=== PATIENT | female | born 1940 | race Caucasian/White ===

== ENCOUNTER 2021-04-16 21:15 | Inpatient (IN) ==
[2021-04-16] MEDS ORDERED: SODIUM CHLORIDE 0.9% 1000ML 1,000 ML IV SCH ×2 (21:45→22:45)
--- NOTE | 2021-04-16 21:48 | Emergency Department Note ---
Impression & Plan Weakness, DEANA (acute kidney injury), Hypercalcemia ED Provider Note Provider: Anthony Pierre MD DATE OF SERVICE: 04/16/2021 CHIEF COMPLAINT: Weakness, nausea, fatigue HISTORY OF PRESENT ILLNESS: Patient is a 80-year-old female with a history of mitral valve prolapse and recent thyroid resection presenting here today complaining of weakness, nausea, and fatigue. Evidently had a partial thyroid resection not long ago and then just this past week have the remainder of her thyroid removed in [place]. Came home on Tuesday per her and her daughters report and has been quite fatigued and weak since then. Requiring assistance walking to the car today and significant nausea over last 4 days has been reported. Daughter states he been in close contact with the surgeon regarding this and went to the primary doctors office yesterday. Had some blood work drawn yesterday and were told this morning that her calcium was quite high (16.8). Kidney function also reported to be somewhat abnormal creatinine 1.7 from baseline around 1.1. She was home on calcitriol and Tums supplementation which she was told to stop today. Received some nausea medicine which he states has allowed her to eat a little bit of boost drink and small amount of food today. Patient denies any abdominal pain, chest pain, shortness of breath, neck pain, difficulty breathing or swallowing, or fevers. No falls or trauma reported. Patient does states she feels lightheaded and dizzy prickly when ambulating and walking. Normally patient states she is quite active and her daughter states she often would mow her own grass and this is quite unlike her to be this week. Reportedly her calcium is quite high and her daughter had concerns about her weakness and brought here for evaluation. Patient daughter states swelling at the incision around the throat has seemed to be improving over the last day or 2. REVIEW OF SYSTEMS: A total of 10 review of systems was obtained and negative except as stated above in the HPI. PAST MEDICAL HISTORY: As noted above MEDICATIONS: Reviewed home medication list SOCIAL HISTORY: Lives at home PHYSICAL EXAM: GENERAL: alert and oriented in no acute distress on stretcher however fatigued resting with eyes closed Head: normocephalic and atraumatic EYES: No injection, discharge or icterus. NECK: Trachea midline. Supple with at the base of the neck small incision ap pears well-healed with mild surrounding swelling without erythema or crepitus. LUNGS: Airway patent. No retractions. Breath sounds clear with good air entry bilaterally. HEART: Regular bradycardic rate and rhythm. No chest wall tenderness ABDOMEN: Soft and non-tender, without guarding or rebound. SKIN: Acyanotic, warm, dry, without rashes EXTREMITIES: Without swelling, tenderness or deformity NEUROLOGICAL: No focal deficits. No aphasia. No facial droop or slurred speech. EK bpm sinus bradycardia. No PVC or PAC. No acute ST segment elevation or depression appreciated. QTc 382. Normal axis. No priors available CONTINUOUS CARDIAC MONITORING: was ordered and showed a heart rate of 50s bpm in sinus bradycardia Patient's laboratory studies and imaging reviewed. Differential includes Infection, dehydration, metabolic abnormality, hypo/hyperglycemia, electrolyte disturbance, anemia, hypoxia, cardiac sources, intracerebral event, toxicologic, neurologic, as well as other pathologies. IMPRESSION/MEDICAL DECISION MAKING: Patient presents with generalized weakness post thyroidectomy on calcium supplementation. Outpatient blood work from the [facility] medical record reviewed showing hypercalcemia as well as some DEANA. Given some fluids here. Benign abdomen. Denies fever. No evidence of significant neck mass or swelling. Doubt infection here. Question significant fatigue from her electrolyte abnormalities postsurgically and dehydrating. Basic labs were obtained as well as EKG here. No significant interval abnormalities noted on the EKG. Given some IV fluid hydration. Patient endorses some dizziness and lightheadedness although she has not followed yet. Do not believe she need a CT of the head at this time as I doubt acute CVA or trauma however she is certainly at risk for falls given her weakened state. No significant cytosis with slight anemia noted. DEANA with a creatinine of 2.5 compared to baseline of 1.1. Calcium of 17 today. Hypomagnesemia 1.5 noted. Covid negative. Urine not impressive for infection. Hypercalcemia likely the patient's symptoms likely from increased supplementation and some dehydration component from her DEANA. Discussed with nephrology for Kianna here via phone and recommended continue fluid hydration. Again received IV fluid bolus and higher rate maintenance fluids were ordered for hydration and delusional purpose s. Titration of her calcium supplementation and improvement of her renal function need to be addressed here at the hospital. The hospitalist was consulted as the patient and daughter at bedside were in agreement for further inpatient care at this time. DIAGNOSIS: Weakness, DEANA, hypercalcemia DISPOSITION: Hospitalist will evaluate Patient was agreeable with this plan. Discussed return precautions and advised follow up. Critical Care I have personally spent 33 minutes of critical care time in the direct management of this patient. This includes bedside care, interpretation of diagnostic studies, and testing, discussion with consultants, patient, and family members, and other required patient management activities. These 33 minutes is in excess of all separately billable procedures. Past Med/Surg History Social History Smoking Status: Never smoker Preferred Language: Frisian Feels Safe at Home: Yes Allergies Allergies Allergy/AdvReac Type Severity Reaction Status Date / Time No Known Allergies Allergy Verified 12/20/02 18:10 Home Meds Home Medications Medication Instructions Recorded Confirmed atenolol 100 mg PO BID 04/16/21 04/16/21 felodipine 10 mg PO DAILY 04/16/21 04/16/21 fenofibrate 54 mg PO DAILY 04/16/21 04/16/21 levothyroxine 112 mcg PO DAILYBB 04/16/21 04/16/21 lovastatin 20 mg PO HS 04/16/21 04/16/21 ondansetron HCl 4 mg PO Q8 PRN 04/16/21 04/16/21 potassium chloride 20 meq PO DAILY 04/16/21 04/16/21 triamterene-hydrochlorothiazid 1 cap PO DAILY 04/16/21 04/16/21 losartan 100 mg PO DAILY 04/17/21 04/17/21 Results & Data (ED) Vital Signs Vital Signs - 24 hr 04/16/21 21:19 04/16/21 22:47 04/16/21 22:52 Temperature 36.4 C L Temperature Source Temporal Artery Scan Pulse Rate 61 55 L Pulse Rate from SpO2 Sensor Pulse Rhythm Regular Pulse Strength Normal Respiratory Rate 18 15 Respiratory Effort / Characteristics Non-Labored Spontaneous Respiratory Depth Normal Respiratory Pattern Regular Blood Pressure 121/67 128/78 Blood Pressure Mean 85 94 Blood Pressure Position Sitting Pulse Oximetry 98 94 94 Oxygen Delivery Method Room Air Room Air Room Air Sepsis Recent Fever Within 48 Hours No Sepsis New/Unexplained Change in Mental Status No Sepsis Action Taken by Nursing No Action Required 04/16/21 23:00 04/16/21 23:30 04/17/21 00:01 Temperature Temperature Source Pulse Rate 55 L 53 L 57 L Pulse Rate from SpO2 Sensor 55 L 53 L 58 L Pulse Rhythm Pulse Strength Respiratory Rate 18 16 18 Respiratory Effort / Characteristics Respiratory Depth Respiratory Pattern Blood Pressure 135/64 124/64 161/62 H Blood Pressure Mean 87 84 95 Blood Pressure Position Pulse Oximetry 94 94 99 Oxygen Delivery Method Room Air Room Air Sepsis Recent Fever Within 48 Hours Sepsis New/Unexplained Change in Mental Status Sepsis Action Taken by Nursing Laboratory Data Result diagrams: 04/16/21 21:50 04/16/21 21:50 Lab Results 04/16/21 04/16/21 04/16/21 Range/Units 21:50 21:50 21:50 WBC 10.56 (4.8-10.8) K/uL RBC 3.45 L (4.2-5.4) M/uL Hgb 10.9 L (12.0-16.0) g/dL Hct 32.4 L (37-47) % MCV 93.9 (80-100) fL MCH 31.6 (25-34) pg MCHC 33.6 (32-36) g/dL RDW Std Deviation 45.5 (36.4-46.3) fL RDW Coeff of Johanna 13.2 (11.5-14.5) % Plt Count 437 H (130-400) K/uL MPV 10.1 (7.4-10.4) fL Immature Gran % (Auto) 1.2 % Neut % (Auto) 69.5 % Lymph % (Auto) 15.9 % [place] % (Auto) 12.2 % Eos % (Auto) 0.9 % Baso % (Auto) 0.3 % Neut # (Auto) 7.33 H (1.4-6.5) K/uL Lymph # (Auto) 1.68 (1.2-3.4) K/uL [place] # (Auto) 1.29 H (0.11-0.59) K/uL Eos # (Auto) 0.10 (0-0.5) K/uL Baso # (Auto) 0.03 (0-0.2) K/uL Immature Gran # (Auto) 0.13 H (0.00-0.02) K/uL Sodium 134 L (136-145) mmol/L Potassium 3.7 (3.5-5.1) mmol/L Chloride 99 (98-107) mmol/L Carbon Dioxide 28 (21-32) mmol/L Anion Gap 7.0 (3-11) BUN 40 H (7-18) mg/dl Creatinine 2.50 H (0.6-1.2) mg/dl Est Cr Clr Drug Dosing 17.8 ml/min Est GFR ( Amer) 20.6 ml/min Est GFR (Non-Af Amer) 17.8 ml/min BUN/Creatinine Ratio 16.2 (10-20) Glucose 167 H (70-99) mg/dl Calcium 17.0 H* (8.5-10.1) mg/dl Phosphorus 2.7 (2.5-4.9) mg/dl Magnesium 1.5 L (1.8-2.4) mg/dl Total Bilirubin 0.3 (0.2-1) mg/dl AST 11 L (15-37) U/L ALT 16 (12-78) U/L Alkaline Phosphatase 50 (45-117) U/L Troponin I < 0.015 (0-0.045) ng/ml Total Protein 7.1 (6.4-8.2) gm/dl Albumin 3.3 L (3.4-5.0) gm/dl Globulin 3.8 (2.5-4.0) gm/dl Albumin/Globulin Ratio 0.9 (0.9-2) Lipase 440 H (73-393) U/L TSH 3.100 (0.300-4.500) uIu/ml Urine Color Yellow Urine Appearance Cloudy A (Clear) Urine pH 7.5 (4.5-7.5) Ur Specific [place] 1.011 (1.000-1.030) Urine Protein Negative (Negative) Urine Glucose (UA) Negative (Negative) Urine Ketones Negative (Negative) Urine Blood Negative (Negative) Urine Nitrite Negative (Negative) Urine Bilirubin Negative (Negative) Urine Urobilinogen Negative (Negative) Ur Leukocyte Esterase Trace H (Negative) Urine WBC (Auto) 5-10 H (0-5) /hpf Urine RBC (Auto) 0-4 (0-4) /hpf U Hyaline Cast (Auto) 1-5 (0-5) /lpf U Epithel Cells (Auto) 10-20 H (0-5) /lpf Urine Bacteria (Auto) Negative (Negative) COVID-19 Eval Order SARS-CoV-2 (PCR) (Negative) 04/16/21 04/16/21 Range/Units 21:50 21:50 WBC (4.8-10.8) K/uL RBC (4.2-5.4) M/uL Hgb (12.0-16.0) g/dL Hct (37-47) % MCV (80-100) fL MCH (25-34) pg MCHC (32-36) g/dL RDW Std Deviation (36.4-46.3) fL RDW Coeff of Johanna (11.5-14.5) % Plt Count (130-400) K/uL MPV (7.4-10.4) fL Immature Gran % (Auto) % Neut % (Auto) % Lymph % (Auto) % [place] % (Auto) % Eos % (Auto) % Baso % (Auto) % Neut # (Auto) (1.4-6.5) K/uL Lymph # (Auto) (1.2-3.4) K/uL [place] # (Auto) (0.11-0.59) K/uL Eos # (Auto) (0-0.5) K/uL Baso # (Auto) (0-0.2) K/uL Immature Gran # (Auto) (0.00-0.02) K/uL Sodium (136-145) mmol/L Potassium (3.5-5.1) mmol/L Chloride (98-107) mmol/L Carbon Dioxide (21-32) mmol/L Anion Gap (3-11) BUN (7-18) mg/dl Creatinine (0.6-1.2) mg/dl Est Cr Clr Drug Dosing ml/min Est GFR ( Amer) ml/min Est GFR (Non-Af Amer) ml/min BUN/Creatinine Ratio (10-20) Glucose (70-99) mg/dl Calcium (8.5-10.1) mg/dl Phosphorus (2.5-4.9) mg/dl Magnesium (1.8-2.4) mg/dl Total Bilirubin (0.2-1) mg/dl AST (15-37) U/L ALT (12-78) U/L Alkaline Phosphatase (45-117) U/L Troponin I (0-0.045) ng/ml Total Protein (6.4-8.2) gm/dl Albumin (3.4-5.0) gm/dl Globulin (2.5-4.0) gm/dl Albumin/Globulin Ratio (0.9-2) Lipase (73-393) U/L TSH (0.300-4.500) uIu/ml Urine Color Urine Appearance (Clear) Urine pH (4.5-7.5) Ur Specific [place] (1.000-1.030) Urine Protein (Negative) Urine Glucose (UA) (Negative) Urine Ketones (Negative) Urine Blood (Negative) Urine Nitrite (Negative) Urine Bilirubin (Negative) Urine Urobilinogen (Negative) Ur Leukocyte Esterase (Negative) Urine WBC (Auto) (0-5) /hpf Urine RBC (Auto) (0-4) /hpf U Hyaline Cast (Auto) (0-5) /lpf U Epithel Cells (Auto) (0-5) /lpf Urine Bacteria (Auto) (Negative) COVID-19 Eval Order Covid19 at [facility] SARS-CoV-2 (PCR) NEGATIVE (Negative) Administered Medications Sodium Chloride (Nss 1000ml) 1,000 mls @ 150 mls/hr IV .Q6H40M MATEO Stop: 05/16/21 22:44 Last Admin: 04/16/21 22:50 Dose: 150 mls/hr Documented by: [id number] Discontinued Medications Sodium Chloride (Nss 1000ml) 1,000 mls @ 999 mls/hr IV .Q1H1M MATEO Stop: 04/16/21 22:45 Last Infusion: 04/16/21 22:55 Dose: 0 mls/hr Documented by: [id number] Admin: 04/16/21 21:54 Dose: 999 mls/hr Documented by: [id number] Discharge Plan Visit Data Chief Complaint: Illness Stated Complaint: HIGH CALCIUM, WEAKNESS, REFERRED BY ED Provider: Anthony Pierre Discharge Problem: Weakness, DEANA (acute kidney injury), Hypercalcemia Patient Disposition: Admitted As Inpatient Discharge Instructions Interventions: ED Discharge Assessment Last Done: 04/17/21 01:23
[2021-04-16 22:00] LABS: Basophils # (auto) 0.03 K/uL (0-0.2); Basophils % (auto) 0.3 %; Eosinophils % (auto) 0.9 %; Hematocrit (blood only) 32.4 % (37-47); Hemoglobin 10.9 g/dL (12.0-16.0); Immature Granulocytes # (auto) 0.13 K/uL (0.00-0.02); Immature Granulocytes % (auto) 1.2 %; Lymphocytes # (auto) 1.68 K/uL (1.2-3.4); Lymphocytes % (auto) 15.9 %; Mean Corpuscular Hemoglobin 31.6 pg (25-34); Mean Corpuscular Hgb Conc 33.6 g/dL (32-36); Mean Corpuscular Volume 93.9 fL (80-100); Mean Platelet Volume 10.1 fL (7.4-10.4); Monocytes # (auto) 1.29 K/uL (0.11-0.59); Monocytes % (auto) 12.2 %; Neutrophils # (auto) 7.33 K/uL (1.4-6.5); Neutrophils % (auto) 69.5 %; Platelet Count 437 K/uL (130-400); RDW Coefficient of Variation 13.2 % (11.5-14.5); RDW Standard Deviation 45.5 fL (36.4-46.3); Red Blood Count 3.45 M/uL (4.2-5.4); White Blood Count 10.56 K/uL (4.8-10.8)
[2021-04-16 22:14] LABS: Appearance Urine Cloudy (Clear); Bacteria Urine Automated Negative (Negative); Bilirubin Urine Negative (Negative); Blood Urine Negative (Negative); Color Urine Yellow; Glucose Urine UA Negative (Negative); Ketones Urine Negative (Negative); Leukocyte Esterase Urine Trace (Negative); Nitrite Urine Negative (Negative); Protein Urine Negative (Negative); RBC Urine Automated 0-4 /hpf (0-4); Specific Gravity Urine 1.011 (1.000-1.030); Urobilinogen Urine Negative (Negative); pH Urine 7.5 (4.5-7.5)
[2021-04-16 22:16] LABS: Alanine Aminotransferase 16 U/L (12-78); Albumin Level 3.3 gm/dl (3.4-5.0); Aspartate Aminotransferase 11 U/L (15-37); BUN Creatinine Ratio 16.2 (10-20); Blood Urea Nitrogen 40 mg/dl (7-18); Carbon Dioxide 28 mmol/L (21-32); Chloride 99 mmol/L (98-107); Creatinine Clr Calc Pharmacy 17.8 ml/min; Est GFR (African American) 20.6 ml/min; Est GFR (Non-African American) 17.8 ml/min; Glucose 167 mg/dl (70-99); Lipase 440 U/L (73-393); Magnesium 1.5 mg/dl (1.8-2.4); Potassium 3.7 mmol/L (3.5-5.1); Sodium 134 mmol/L (136-145)
[2021-04-16 22:24] LABS: Albumin Globulin Ratio 0.9 (0.9-2); Alkaline Phosphatase 50 U/L (45-117); Bilirubin,Total 0.3 mg/dl (0.2-1); Globulin 3.8 gm/dl (2.5-4.0); Phosphorus 2.7 mg/dl (2.5-4.9); Total Protein 7.1 gm/dl (6.4-8.2); Troponin I < 0.015 ng/ml (0-0.045)
[2021-04-17] MEDS ORDERED: NITROGLYCERIN SL 0.4 MG/TAB TAB SL PRN (02:24)
[2021-04-17] MEDS ORDERED: ACETAMINOPHEN 325 MG TAB PO PRN (02:24)
[2021-04-17] MEDS ORDERED: hydrALAZINE HCL 20 MG/ML VIAL IV PRN (02:24)
[2021-04-17] MEDS ORDERED: METOPROLOL TARTRATE 1 MG/ML VIAL IV STA (02:35)
[2021-04-17] MEDS: SODIUM CHLORIDE 0.9% 1000ML 1,000 ML IV SCH ×3 (02:45→11:25)
[2021-04-17] MEDS ORDERED: FAMOTIDINE 20 MG in SYRINGE 3 ML IV STA (02:49)
[2021-04-17] MEDS ORDERED: FAMOTIDINE 20MG/5ML IV PUSH IV STA (02:50)
--- NOTE | 2021-04-17 02:53 | History and Physical Report ---
DATE OF ADMISSION: 04/17/2021 CHIEF COMPLAINT: Not feeling well and found to have hypercalcemia. HISTORY OF PRESENT ILLNESS: A 80-year-old female with past medical history significant for hyperlipidemia, cyst of right ovary, mild mitral regurgitation, essential hypertension, external hemorrhoids, chronic kidney disease stage IIIB, history of colon cancer, history of partial thyroidectomy on 03/20/2021 and again had to do total thyroidectomy on 04/09/2021. Comes because of not feeling well and found to have hypercalcemia. The patient states since thyroidectomy she was not feeling well, fatigued, weakness, somewhat wobbly with walking, poor appetite. Outpatient labs showed calcium of around 17 and she was advised to come to the hospital. In the ER, her calcium was 17. ER talked to nephrology and recommended aggressive fluids and she was taking Tums and also calcitriol at her home which was stopped. Currently resting comfortably and hemodynamically stable. Denies any headache, no blurred visions, no earache, no runny nose, no sore throat, no cough. Somewhat nauseous. No chest pain, no shortness of breath, no pain at surgical site. No abdominal pain. Normal bowel and bladder movements. ALLERGIES: No known drug allergies. PAST MEDICAL HISTORY: As mentioned above. PAST SURGICAL HISTORY: Colonoscopy, cystoscopy, hemorrhoidectomy, thyroidectomy, cataracts, sigmoidoscopy, vaginal hysterectomy. MEDICATIONS: The patient is on atenolol 100 mg p.o. b.i.d., felodipine 10 mg p.o. daily, fenofibrate 54 mg p.o. daily, levothyroxine 112 mcg p.o. daily, losartan 100 mg p.o. daily, lovastatin 20 mg p.o. at bedtime, Zofran 4 mg p.o. q. 8 hours p.r.n., potassium chloride 20 mEq p.o. daily, triamterene/hydrochlorothiazide 37.5/25 mg p.o. daily. FAMILY HISTORY: Significant for diabetes, heart disorder, and hypercholesterolemia. SOCIAL HISTORY: . No smoking. Alcohol rarely. No drug use. REVIEW OF SYSTEMS: As per HPI. Rest of the review of systems negative. PHYSICAL EXAMINATION: GENERAL: The patient is of moderate build, not in acute distress. VITAL SIGNS: Temperature 36.4, pulse 54, respiratory rate 18, blood pressure 161/62, oxygen 99% on room air. HEENT: Pupils equal, round, and reactive to light. Oral mucosa moist. NECK: No JVD. No neck masses. Surgical thyroidectomy site no drainage or erythema seen. CARDIOVASCULAR: S1, S2 heard, regular rate and rhythm, no murmur, no gallop. RESPIRATORY SYSTEM: Normal AP diameter. No accessory muscle use. No wheezing, no crackles. ABDOMEN: Soft, bowel sounds present, nontender. No distention. CENTRAL NERVOUS SYSTEM: Cranial nerves II-XII grossly intact. Nonfocal. EXTREMITIES: No edema, no erythema. LABORATORY DATA: WBC 10.5, hemoglobin 10.9, hematocrit 32.4, platelets 437. Sodium 134, potassium 3.7, chloride 99, bicarbonate 28, BUN 40, creatinine 2.5, serum glucose 167, calcium 17, phosphorus 2.7, magnesium 1.5, total bilirubin 0.3, AST 11, ALT 16, alkaline phosphatase 50. Troponin I less than 0.015. Lipase 440. TSH 3.1. Urinalysis, trace leukocyte esterase, bacteria negative. SARS-CoV-2 PCR negative. IMAGING DATA: Chest x-ray, no acute findings seen. EKG: Sinus bradycardia with a rate of 58. No previous ECGs available. ASSESSMENT AND PLAN: This is a 80-year-old female who presents not feeling well and found to have hypercalcemia. 1. Hypercalcemia: Recently had a thyroidectomy.Mental status ok. Was on tums and calcitriol, which was stopped. Getting fluids at 150 mL per hour. Repeat calcium levels in the a.m. Nephrology consulted and notified by the ER. 2. Thyroid nodule, status post thyroidectomy: Follow the pathology reports. 3. Hypothyroidism: Continue Synthroid. 4. Hypertension: Continue losartan, felodipine, amlodipine, and Maxzide. Will follow the blood pressure. 5. History of hyperlipidemia: Continue lovastatin. 6. Acute kidney injury on chronic kidney disease stage III: Baseline creatinine around 1.1, presents with a creatinine of 2.5. Getting fluids. Avoid nephrotoxic agents. Follow the labs in the a.m. We will hold the losartan and Maxzide for now until creatinine improves. IV hydralazine p.r.n. 7. Deep venous thrombosis prophylaxis: Sequential compression devices. DISPOSITION: Closely monitor in the [facility]. Expect to discharge home and follow with family doctor. Level 1 full code. Addendum. Morning calcium 14.5. Blood pressure running on low side, having bradycardia. d/w nephrology and starting on calcitonin 280 units sub q tid for three doses. follow repeat labs. Also holding all home BP meds and close monitor BP. MTDD
[2021-04-17] MEDS: MAGNESIUM SULFATE / D5W 1 GM/100 ML BAG IV SCH ×2 (03:01→04:53)
[2021-04-17 05:38] LABS: Basophils # (auto) 0.01 K/uL (0-0.2); Basophils % (auto) 0.1 %; Eosinophils # (auto) 0.14 K/uL (0-0.5); Eosinophils % (auto) 1.8 %; Hematocrit (blood only) 25.9 % (37-47); Hemoglobin 8.5 g/dL (12.0-16.0); Immature Granulocytes # (auto) 0.07 K/uL (0.00-0.02); Immature Granulocytes % (auto) 0.9 %; Lymphocytes # (auto) 2.46 K/uL (1.2-3.4); Lymphocytes % (auto) 30.9 %; Mean Corpuscular Hemoglobin 30.9 pg (25-34); Mean Corpuscular Hgb Conc 32.8 g/dL (32-36); Mean Corpuscular Volume 94.2 fL (80-100); Mean Platelet Volume 9.9 fL (7.4-10.4); Monocytes # (auto) 0.88 K/uL (0.11-0.59); Neutrophils # (auto) 4.41 K/uL (1.4-6.5); Neutrophils % (auto) 55.3 %; Platelet Count 337 K/uL (130-400); RDW Coefficient of Variation 13.2 % (11.5-14.5); RDW Standard Deviation 45.5 fL (36.4-46.3); Red Blood Count 2.75 M/uL (4.2-5.4); White Blood Count 7.97 K/uL (4.8-10.8)
[2021-04-17] MEDS: LEVOTHYROXINE SODIUM 112 MCG TABLET PO SCH (05:55)
[2021-04-17] MEDS ORDERED: SODIUM CHLORIDE 0.9% 500 ML IV SCH (06:15)
[2021-04-17 06:20] LABS: BUN Creatinine Ratio 15.9 (10-20); Calcium 14.9 mg/dl (8.5-10.1); Est GFR (African American) 25.2 ml/min; Est GFR (Non-African American) 21.7 ml/min; Magnesium 2.1 mg/dl (1.8-2.4); Potassium 3.5 mmol/L (3.5-5.1)
[2021-04-17] MEDS ORDERED: CALCITONIN SALMON 400 UNITS/2 ML SQ SCH (06:40)
--- NOTE | 2021-04-17 06:51 | XRay Report ---
XR chest 1V portable HISTORY: 80 years-old Female weakness acute weakness COMPARISON: None TECHNIQUE: Portable AP view of the chest FINDINGS: Cardiac mediastinal and hilar silhouettes are within normal limits. There is no pneumothorax, pleural effusion, airspace consolidation or overt pulmonary edema. Mild right hemidiaphragmatic elevation. B ones of the chest appear grossly intact. Degenerative changes of the shoulders and spine. Mild mid th oracic dextroscoliosis. IMPRESSION: No acute process. ACT 112: Negative or not required by law. The above report was generated using voice recognition software. It may contain grammatical, syntax o r spelling errors. Electronically signed by: Srinath Gomez M.D. 04/17/2021 6:50 AM
[2021-04-17] MEDS: CALCITONIN SALMON SQ SCH ×3 (07:45→22:57)
[2021-04-17] MEDS ORDERED: FELODIPINE 5 MG TABCR PO SCH (09:00)
[2021-04-17] MEDS ORDERED: ATENOLOL 50 MG TABLET PO SCH (09:00)
[2021-04-17] MEDS: ONDANSETRON INJ 2 MG/ML 2 ML VIAL IV PRN ×2 (10:26→17:05)
[2021-04-17 11:03] LABS: BUN Creatinine Ratio 17.5 (10-20); Calcium 14.3 mg/dl (8.5-10.1); Creatinine Clr Calc Pharmacy 22.4 ml/min; Est GFR (African American) 27.2 ml/min; Est GFR (Non-African American) 23.5 ml/min; Potassium 3.5 mmol/L (3.5-5.1)
[2021-04-17] MEDS: FENOFIBRATE NANOCRYSTALLIZED 48 MG TABLET PO SCH (13:01)
--- NOTE | 2021-04-17 16:05 | Communication Note ---
Date of Service: April 17, 2021 80-year-old female with the recent surgery for thyroid nodule finished on third of this month and has been on very high dose of vitamin D and calcitriol for the last 4 or 5 days was admitted with weakness and tiredness and noted to have a calcium of more than 17 and creatinine elevated as well. Has been getting intravenous fluid administration and calcitonin and the calcium level has been improving. Appreciate new nephrology input and recommendation. We will do the full progress note tomorrow. Dr Maury Azar
[2021-04-17] MEDS: NSS + 20MEQ KCL 20 MEQ/1,000 ML BAG IV SCH ×2 (17:35→22:58)
[2021-04-17] MEDS: LOVASTATIN 20 MG TAB PO SCH (22:59)
[2021-04-18] MEDS: NSS + 20MEQ KCL 20 MEQ/1,000 ML BAG IV SCH ×3 (04:30→20:43)
[2021-04-18] MEDS: LEVOTHYROXINE SODIUM 112 MCG TABLET PO SCH (06:40)
[2021-04-18 07:03] LABS: Basophils # (auto) 0.02 K/uL (0-0.2); Basophils % (auto) 0.3 %; Eosinophils # (auto) 0.03 K/uL (0-0.5); Eosinophils % (auto) 0.4 %; Hematocrit (blood only) 24.9 % (37-47); Hemoglobin 8.4 g/dL (12.0-16.0); Immature Granulocytes # (auto) 0.08 K/uL (0.00-0.02); Lymphocytes # (auto) 1.52 K/uL (1.2-3.4); Lymphocytes % (auto) 19.6 %; Mean Corpuscular Hemoglobin 31.1 pg (25-34); Mean Corpuscular Hgb Conc 33.7 g/dL (32-36); Mean Corpuscular Volume 92.2 fL (80-100); Mean Platelet Volume 9.7 fL (7.4-10.4); Monocytes # (auto) 0.74 K/uL (0.11-0.59); Monocytes % (auto) 9.6 %; Neutrophils # (auto) 5.35 K/uL (1.4-6.5); Neutrophils % (auto) 69.1 %; Platelet Count 314 K/uL (130-400); RDW Coefficient of Variation 13.2 % (11.5-14.5); White Blood Count 7.74 K/uL (4.8-10.8)
[2021-04-18] MEDS: FENOFIBRATE NANOCRYSTALLIZED 48 MG TABLET PO SCH (07:19)
[2021-04-18 07:42] LABS: BUN Creatinine Ratio 14.8 (10-20); Calcium 10.7 mg/dl (8.5-10.1); Creatinine Clr Calc Pharmacy 25.7 ml/min; Est GFR (African American) 32.2 ml/min; Est GFR (Non-African American) 27.8 ml/min; Magnesium 1.1 mg/dl (1.8-2.4); Phosphorus 1.8 mg/dl (2.5-4.9); Potassium 3.9 mmol/L (3.5-5.1)
--- NOTE | 2021-04-18 07:48 | Electrocardiogram Report ---
Test Reason : Blood Pressure : / mmHG Vent. Rate : 058 BPM Atrial Rate : 058 BPM P-R Int : 190 ms QRS Dur : 102 ms QT Int : 390 ms P-R-T Axes : 029 025 043 degrees QTc Int : 382 ms Sinus bradycardia Minor ST elevation inferolateral leads No previous ECGs available Confirmed by Idris Townsend ([id number]) on 04/18/2021 7:48:01 AM Referred By: Davina Thomas Confirmed By:Idris Townsend
[2021-04-18] MEDS: MAGNESIUM SULFATE / D5W 1 GM/100 ML BAG IV SCH ×2 (09:11→10:50)
[2021-04-18] MEDS ORDERED: POTASSIUM PHOS 3 MMOL/1 ML INFUSION IV STA (13:51)
[2021-04-18] MEDS ORDERED: POTASSIUM PHOSPHATE 30 MMOL in SODIUM CHLORIDE 0.9% 500 ML IV ONE (14:00)
--- NOTE | 2021-04-18 14:11 | Nephrology Progress Note ---
Date of Service April 18, 2021 Assessment & Plan Admission and Anticipated Discharge Date Admission Date: April 17, 2021 Subjective Feels better. No new issues. CA dropping really fast. PHYSICAL EXAMINATION: GENERAL: The patient is of moderate build, not in acute distress. HEENT: Pupils equal, round, and reactive to light. Oral mucosa moist. NECK: No JVD. No neck masses. Surgical thyroidectomy site no drainage or erythema seen. CARDIOVASCULAR: S1, S2 heard, regular rate and rhythm, no murmur, no gallop. RESPIRATORY SYSTEM: Normal AP diameter. No accessory muscle use. No wheezing, no crackles. ABDOMEN: Soft, bowel sounds present, nontender. No distention. CENTRAL NERVOUS SYSTEM: Cranial nerves II-XII grossly intact. Nonfocal. EXTREMITIES: No edema, no erythema. LABORATORY DATA: Ca down to 10+ now. Low mag and low Phos ASSESSMENT AND PLAN: This is a 80-year-old female who presents not feeling well and found to have severe hypercalcemia. 1. Hypercalcemia: Recently had a thyroidectomy. Post Surgery---Was on very high dose combo of Tums and calcitriol, Citracal and Vit D. Ca down really fast. Lower iv fluids to 75/hr. Repeat calcium levels in the a.m. Can stop Calcitonin tomorrow. No need of Zometa. Do not restart any of the Calcium meds. Correct low Mag and low Phos. Also DEANA resolved. Will need nephrology follow up within 1-2 week after discharge. Results & Data ([facility]) Vital Signs (Past 12 Hours) Vital Signs Temp Pulse Pulse Resp BP BP Pulse Ox 04/18/21 11:46 37.0 C 65 18 166/68 H 96 04/18/21 08:00 59 L 04/18/21 07:28 36.7 C 66 18 165/70 H 94 04/18/21 03:19 37 C 64 18 161/71 H 95
[2021-04-18] MEDS ORDERED: bisacodyL 5 MG TABEC PO ONE (14:34)
[2021-04-18] MEDS ORDERED: MEGESTROL ACETATE 800 MG/20 ML UDP PO SCH (14:45)
--- NOTE | 2021-04-18 14:49 | Consultation Report ---
DATE OF CONSULTATION: 04/17/2021 NEPHROLOGY CONSULTATION NOTE REASON FOR CONSULT: Critically high serum calcium and acute renal failure. HISTORY OF PRESENT ILLNESS: The patient is a 80-year-old female who was sent over to the hospital because of outpatient labs, which showed critically high serum calcium of 17 with acute renal failure. She was also feeling sick with nausea, extreme fatigue, headache. It is worth noting the patient just had a thyroid nodule surgery at [facility] and was discharged on 04/10/2021, which is just 5 days prior to hospitalization. At the time of discharge, her calcium was normal at 9.1 and kidney function was near normal with a creatinine of 1.1. She was discharged with an extremely high dose of calcitriol, vitamin D as well as Tums. According to the discharge summary, she was prescribed calcitriol 0.5 mcg 2 times a day, calcium carbonate tablet 8 tablets per day on top of Centrum Silver, Citracal Plus she was already taking. She was also on hydrochlorothiazide as well as vitamin D. Her PTH in the past has been checked and was suppressed. It is also worth noting that she does have history of mild hypercalcemia even 1 year ago. At this time, patient is getting IV fluid and with that, serum calcium has already gone down from 17 range to 14 range. She is getting normal saline at 150 mL per hour. She is making urine, but she does not have a Fuentes catheter and it is hard to know exact amount. Creatinine is also already trending down from 2.12, it is down to 1.99. PTH is very suppressed. PAST MEDICAL AND SURGICAL HISTORY: Hyperlipidemia, ovarian cyst, mild mitral regurgitation, hypertension, external hemorrhoids, chronic kidney disease stage IIIA, baseline creatinine around 1.1-1.3, history of colon cancer, history of partial thyroidectomy done on 03/20/2021, which then had to be converted to total thyroidectomy, which was done on 04/09/2021. Colonoscopy, cystoscopy, hemorrhoidectomy, thyroidectomy, cataract, sigmoidoscopy, vaginal hysterectomy. ALLERGIES: None. MEDICATIONS: Prior to hospitalization were reviewed from both [facility] medicine reconciliation as well as her [facility] Medical record. FAMILY HISTORY: Significant for diabetes, heart disease and hyperlipidemia. SOCIAL HISTORY: She is . No smoking, no alcohol, no drugs. REVIEW OF SYSTEMS: Very hard to obtain as the patient seems very weak and was barely able to speak a full sentence. She says she just feels very weak and sick. PHYSICAL EXAMINATION: GENERAL: A middle-aged white female who appears to be very weak and sick at this time. VITAL SIGNS: Blood pressure is 108/43, pulse rate 48, temperature 36.4 degrees Celsius, 94% on room air. HEENT: Mucous membranes moist. NECK: Supple. No jugular venous distention. CHEST: Bilaterally clear to auscultation. CARDIOVASCULAR: S1, S2 regular. ABDOMEN: Soft, nontender. EXTREMITIES: Show no edema. NEUROLOGIC: She is awake, alert, oriented, but was not very quick to answer. Normal, but slow speech. SKIN: No rashes noted. LABORATORY TESTS: Reviewed. Calcium was 17.0 on admission, it is trending down and is down to 14.3 at this point. Creatinine is down to 1.99 from a peak of 2.50 yesterday. Otherwise, electrolytes are reasonable. PTH is suppressed at 6.3. Hemoglobin 8.5. ASSESSMENT AND PLAN: A 80-year-old female who is admitted with critical hypercalcemia, acute renal failure and associated symptoms. 1. Acute renal failure: This is prerenal in type associated with critically high serum calcium. Such high level of calcium is always associated with acute renal failure. Fortunately, she is making urine and her creatinine is trending down, so I expect it to continue to get better in the coming days. We do have to keep an eye on the urine output given that we are aggressively hydrating the patient with normal saline at 150 mL per hour. The goal is to have very high level of urine output for the calcium excretion. 2. Hypercalcemia, critically high serum calcium: However, we do know for a fact that as of 04/10, which is just 5 days prior to hospitalization, she had a normal serum calcium of 9.1. From that level, it has gone up to 17 in a span of 5 days' secondary to super-aggressive calcium and vitamin D supplement. Even though this may be a routine after thyroid surgery, in this patient, this was way too excessive and as a result, we have this critically high serum calcium. We will stop all calcium supplementation as well as calcitriol and vitamin D as well as hydrochlorothiazide. Continue aggressive hydration with close monitoring of urine output. Continue calcitonin for a total of 4 doses. We will continue to monitor serum calcium at least 3 times a day. I expect the calcium as well as kidney function to be better in the coming days. I do not believe at this point, we have to do a detailed workup for hypercalcemia as the rate of rise was very fast within a span of few days. Such rapid rise cannot be really associated with malignancy.
--- NOTE | 2021-04-18 15:05 | Electrocardiogram Report ---
Test Reason : Blood Pressure : / mmHG Vent. Rate : 065 BPM Atrial Rate : 065 BPM P-R Int : 168 ms QRS Dur : 080 ms QT Int : 408 ms P-R-T Axes : 059 039 058 degrees QTc Int : 424 ms Normal sinus rhythm Normal ECG When compared with ECG of 16-APR-2021 21:51, No significant change was found Confirmed by Beto Long ([id number]) on 04/18/2021 3:05:14 PM Referred By: Davina Thomas Confirmed By:Beto Long
[2021-04-18] MEDS: ONDANSETRON INJ 2 MG/ML 2 ML VIAL IV PRN (15:29)
--- NOTE | 2021-04-18 16:08 | Hospitalist Progress Note ---
Date of Service April 18, 2021 Assessment & Plan (1) Hypercalcemia: She is a status post thyroid nodule surgery at [facility] on fourth of this month She was given extremely high dose of calcitriol and vitamin D as well as Tums following the surgery to prevent possible hungry bone syndrome She has been complaining of progressive weakness since the surgery and has not been eating and/or drinking enough She was seen in the clinic and noted to have a calcium of more than 17 and was sent into the hospital Has been receiving intravenous fluids since admission and the calcium level has decreased to almost normal at 10.7 on 04/18/2021 Remains weak and lethargic Significant anorexia for the last 7 to 10 days Has not been drinking and/or eating enough at home Very dehydrated with increasing creatinine on admission Creatinine is better but remains anorexic We will try Megace Dietary consult (2) DEANA (acute kidney injury): DEANA secondary to dehydration with creatinine of 2.50 on admission Has been getting intravenous fluid and increasing oral intake We will monitor PRPcreatinine is 1.73 on 04/18/2021 (3) Weakness: Secondary to hyperkalemia and DEANA (4) Hypothyroidism: Status post surgery for thyroid nodule Will need to have replacement with Synthroid (5) Hypertension: Blood pressure seems to be reasonably stable DVT prophylaxis We will start subcu heparin Admission and Anticipated Discharge Date Admission Date: April 17, 2021 Subjective 04/18/2021 The patient was seen and examined in medical telemetry unit She remains weak and lethargic but feels a little better She has not been drinking or eating almost anything for the last 7 to 10 days Denies any acute symptoms except weakness Review of Systems Review of Systems: All systems reviewed and are unremarkable except as noted below Physical Exam Physical Exam: Lying in bed comfortably but very anxious and weak Constitutional: well developed, well nourished and + ill appearing Eyes: PERRL, conjunctivae normal, anicteric sclerae ENMT: external ear and nose normal, oropharynx normal Neck: trachea midline, no thyromegaly Respiratory: no respiratory distress Auscultation: lungs clear to auscultation bilaterally Cardiovascular: Rate/Rhythm: regular rate and regular rhythm Heart Sounds: no murmur Extremities: no edema Gastrointestinal (Abdomen): Inspection/Auscultation: normal bowel sounds; abdomen not distended Percussion/Palpation: abdomen soft; abdomen nontender Musculoskeletal: No acute arthritis in any joint Neurologic: Alert, awake and oriented x3. Generally very weak and lethargic. Moving all limbs equally Lymphatic: no cervical or axillary lymphadenopathy Results & Data Results & Data ([facility]) Vital Signs (Past 12 Hours) Vital Signs Temp Pulse Pulse Resp BP BP Pulse Ox 04/18/21 15:12 36.6 C 59 L 20 145/68 H 98 04/18/21 11:46 37.0 C 65 18 166/68 H 96 04/18/21 08:00 59 L 04/18/21 07:28 36.7 C 66 18 165/70 H 94 Laboratory Results Short CBC 04/18/21 Range/Units 06:50 WBC 7.74 (4.8-10.8) K/uL Hgb 8.4 L (12.0-16.0) g/dL Hct 24.9 L (37-47) % Plt Count 314 (130-400) K/uL BMP 04/18/21 06:50 Sodium 144 Potassium 3.9 Chloride 115 H Carbon Dioxide 22 BUN 26 H Creatinine 1.73 H Glucose 91 Calcium 10.7 H D Medications Administered Current Inpatient Medications Acetaminophen (Acetaminophen 325 Mg Tab) 650 mg PO Q4H PRN PRN Reason: Pain or Fever Stop: 05/17/21 02:23 Atenolol (Atenolol 50 Mg Tablet) 100 mg PO BID [facility] Stop: 05/17/21 08:59 Felodipine (Felodipine 5 Mg Tabcr) 10 mg PO DAILY [facility] Stop: 05/17/21 08:59 Fenofibrate (Fenofibrate Nanocrystallized 48 Mg Tablet) 48 mg PO DAILY [facility]; Protocol Stop: 05/17/21 08:59 Last Admin: 04/18/21 07:19 Dose: 48 mg Documented by: Hydralazine HCl (Hydralazine Hcl 20 Mg/Ml Vial) 7.5 mg IV Q6H PRN PRN Reason: Hypertension Stop: 05/17/21 02:23 Potassium Chloride/Sodium Chloride (Normal Saline W/20 Meq Kcl) 20 meq in 1,000 mls @ 75 mls/hr IV .[id number] [facility] Stop: 05/17/21 16:59 Last Infusion: 04/18/21 14:23 Dose: 75 mls/hr Documented by: Potassium Phosphate 30 mmol/ (Sodium Chloride) 510 mls @ 102 mls/hr IV ONE ONE Stop: 04/18/21 18:59 Last Admin: 04/18/21 14:08 Dose: 102 mls/hr Documented by: Levothyroxine Sodium (Levothyroxine Sodium 112 Mcg Tablet) 112 mcg PO DAILYBB [facility] Stop: 05/17/21 06:29 Last Admin: 04/18/21 06:40 Dose: 112 mcg Documented by: Lovastatin (Lovastatin 20 Mg Tab) 20 mg PO HS [facility] Stop: 05/17/21 20:59 Last Admin: 04/17/21 22:59 Dose: 20 mg Documented by: Megestrol Acetate (Megestrol Acetate Susp 400 Mg/10 Ml Udc) 800 mg PO QAM [facility] Stop: 05/19/21 08:59 Nitroglycerin (Nitroglycerin Sl 0.4 Mg/Tab Tab) 0.4 mg SL UD PRN PRN Reason: Chest Pain Stop: 05/17/21 02:23 Ondansetron HCl (Ondansetron Inj 2 Mg/Ml 2 Ml Vial) 4 mg IV Q6H PRN PRN Reason: Nausea Stop: 05/17/21 02:23 Last Admin: 04/18/21 15:29 Dose: 4 mg Documented by:
[2021-04-18] MEDS: LOVASTATIN 20 MG TAB PO SCH (20:43)
[2021-04-18] MEDS ORDERED: FAMOTIDINE 20 MG in SYRINGE 3 ML IV PRN (22:29)
[2021-04-19] MEDS: LEVOTHYROXINE SODIUM 112 MCG TABLET PO SCH (06:08)
[2021-04-19 06:19] LABS: BUN Creatinine Ratio 15.5 (10-20); Calcium 9.3 mg/dl (8.5-10.1); Creatinine Clr Calc Pharmacy 32.1 ml/min; Est GFR (African American) 40.6 ml/min; Magnesium 1.2 mg/dl (1.8-2.4); Phosphorus 2.1 mg/dl (2.5-4.9); Potassium 3.3 mmol/L (3.5-5.1)
[2021-04-19] MEDS ORDERED: POTASSIUM CHLORIDE CRTAB 20 MEQ TABCR PO STA (06:24)
[2021-04-19] MEDS: NSS + 20MEQ KCL 20 MEQ/1,000 ML BAG IV SCH ×2 (07:50→20:28)
[2021-04-19] MEDS: MAGNESIUM SULFATE / D5W 1 GM/100 ML BAG IV SCH ×2 (07:51→09:25)
[2021-04-19] MEDS: FENOFIBRATE NANOCRYSTALLIZED 48 MG TABLET PO SCH (07:51)
[2021-04-19] MEDS: MEGESTROL ACETATE SUSP 400 MG/10 ML UDC PO SCH (07:52)
[2021-04-19] MEDS ORDERED: POTASSIUM PHOS 3 MMOL/1 ML INFUSION IV STA (08:28)
[2021-04-19] MEDS ORDERED: POTASSIUM PHOSPHATE 30 MMOL in SODIUM CHLORIDE 0.9% 500 ML IV ONE (09:00)
[2021-04-19] MEDS ORDERED: MAGNESIUM SULFATE / D5W 1 GM/100 ML BAG IV SCH (09:00)
--- NOTE | 2021-04-19 10:11 | Electrocardiogram Report ---
Test Reason : Blood Pressure : / mmHG Vent. Rate : 064 BPM Atrial Rate : 064 BPM P-R Int : 164 ms QRS Dur : 084 ms QT Int : 420 ms P-R-T Axes : 027 038 053 degrees QTc Int : 433 ms Normal sinus rhythm Normal ECG When compared with ECG of 18-APR-2021 07:06, No significant change was found Confirmed by Jaiden Sterling [id number] on 04/19/2021 10:11:27 AM Referred By: Davina Thomas Confirmed By:Jaiden Sterling
--- NOTE | 2021-04-19 13:13 | Hospitalist Progress Note ---
Date of Service April 19, 2021 Assessment & Plan (1) Hypercalcemia: She is a status post thyroid nodule surgery at [facility] on fourth of this month She was given extremely high dose of calcitriol and vitamin D as well as Tums following the surgery to prevent possible hungry bone syndrome She has been complaining of progressive weakness since the surgery and has not been eating and/or drinking enough She was seen in the clinic and noted to have a calcium of more than 17 and was sent into the hospital Has been receiving intravenous fluids since admission and the calcium level has decreased to almost normal at 10.7 on 04/18/2021 Hypercalcemia is corrected We will continue a small amount of IV fluid for now Significant anorexia for the last 7 to 10 days Has not been drinking and/or eating enough at home Very dehydrated with increasing creatinine on admission Creatinine is better but remains anorexic We will try Megace-has not improved her anorexia yet Dietary consult-appreciate input and recommendation She plans to eat more Severe electrolyte imbalance Hypomagnesemia and hypophosphatemia with hypokalemia Likely secondary to poor oral intake Has been getting supplement and will monitor the levels (2) DEANA (acute kidney injury): DEANA secondary to dehydration with creatinine of 2.50 on admission Has been getting intravenous fluid and increasing oral intake We will monitor PRPcreatinine is 1.73 on 04/18/2021 Creatinine is improved to 1.43 (3) Weakness: Secondary to hyperkalemia and DEANA We will get PT and OT evaluation (4) Hypothyroidism: Status post surgery for thyroid nodule Will need to have replacement with Synthroid (5) Hypertension: Blood pressure seems to be reasonably stable DVT prophylaxis We will start subcu heparin Admission and Anticipated Discharge Date Admission Date: April 17, 2021 Subjective 04/18/2021 The patient was seen and examined in medical telemetry unit She remains weak and lethargic but feels a little better She has not been drinking or eating almost anything for the last 7 to 10 days Denies any acute symptoms except weakness 04/19/2021 The patient was seen and examined in medical telemetry unit She remains weak but has been feeling a little bit better compared with yesterday She will try to eat more and she was seen by the dietitian Not yet ready to be discharged Review of Systems Review of Systems: All systems reviewed and are unremarkable except as noted below Gastrointestinal: Severe anorexia Neurologic: + generalized weakness Generally weak Physical Exam Physical Exam: Lying in bed comfortably but very anxious and weak Constitutional: well developed, well nourished and + ill appearing Eyes: PERRL, conjunctivae normal, anicteric sclerae ENMT: external ear and nose normal, oropharynx normal Neck: trachea midline, no thyromegaly Respiratory: no respiratory distress Auscultation: lungs clear to auscultation bilaterally Cardiovascular: Rate/Rhythm: regular rate and regular rhythm Heart Sounds: no murmur Extremities: no edema Gastrointestinal (Abdomen): Inspection/Auscultation: normal bowel sounds; abdomen not distended Percussion/Palpation: abdomen soft; abdomen nontender Musculoskeletal: No acute arthritis in any joint Neurologic: Alert, awake and oriented x3. Generally weak but no focal neuro deficit Lymphatic: no cervical or axillary lymphadenopathy Results & Data Results & Data ([facility]) Vital Signs (Past 12 Hours) Vital Signs Temp Pulse Pulse Resp BP Pulse Ox 04/19/21 11:13 36.7 C 63 18 145/74 H 98 04/19/21 08:26 62 04/19/21 07:43 36.8 C 65 18 142/58 H 95 04/19/21 04:08 37 C 63 18 134/65 95 Laboratory Results [facility] 04/19/21 05:09 Sodium 142 Potassium 3.3 L D Chloride 115 H Carbon Dioxide 20 L BUN 22 H Creatinine 1.43 H D Glucose 95 Calcium 9.3 Medications Administered Current Inpatient Medications Acetaminophen (Acetaminophen 325 Mg Tab) 650 mg PO Q4H PRN PRN Reason: Pain or Fever Stop: 05/17/21 02:23 Atenolol (Atenolol 50 Mg Tablet) 100 mg PO BID [facility] Stop: 05/17/21 08:59 Felodipine (Felodipine 5 Mg Tabcr) 10 mg PO DAILY [facility] Stop: 05/17/21 08:59 Fenofibrate (Fenofibrate Nanocrystallized 48 Mg Tablet) 48 mg PO DAILY [facility]; Protocol Stop: 05/17/21 08:59 Last Admin: 04/19/21 07:51 Dose: 48 mg Documented by: Hydralazine HCl (Hydralazine Hcl 20 Mg/Ml Vial) 7.5 mg IV Q6H PRN PRN Reason: Hypertension Stop: 05/17/21 02:23 Potassium Chloride/Sodium Chloride (Normal Saline W/20 Meq Kcl) 20 meq in 1,000 mls @ 75 mls/hr IV .[id number] [facility] Stop: 05/17/21 16:59 Last Admin: 04/19/21 07:50 Dose: 75 mls/hr Documented by: Famotidine 20 mg/ Syringe 5 mls @ 2.5 mls/min IV DAILY PRN PRN Reason: Heartburn Stop: 05/19/21 08:59 Last Admin: 04/18/21 23:04 Dose: 2.5 mls/min Documented by: Potassium Phosphate 30 mmol/ (Sodium Chloride) 510 mls @ 102 mls/hr IV ONE ONE Stop: 04/19/21 13:59 Last Admin: 04/19/21 11:38 Dose: 102 mls/hr Documented by: Levothyroxine Sodium (Levothyroxine Sodium 112 Mcg Tablet) 112 mcg PO DAILYBB [facility] Stop: 05/17/21 06:29 Last Admin: 04/19/21 06:08 Dose: 112 mcg Documented by: Lovastatin (Lovastatin 20 Mg Tab) 20 mg PO HS [facility] Stop: 05/17/21 20:59 Last Admin: 04/18/21 20:43 Dose: 20 mg Documented by: Megestrol Acetate (Megestrol Acetate Susp 400 Mg/10 Ml Udc) 800 mg PO QAM [facility] Stop: 05/19/21 08:59 Last Admin: 04/19/21 07:52 Dose: 800 mg Documented by: Nitroglycerin (Nitroglycerin Sl 0.4 Mg/Tab Tab) 0.4 mg SL UD PRN PRN Reason: Chest Pain Stop: 05/17/21 02:23 Ondansetron HCl (Ondansetron Inj 2 Mg/Ml 2 Ml Vial) 4 mg IV Q6H PRN PRN Reason: Nausea Stop: 05/17/21 02:23 Last Admin: 04/18/21 15:29 Dose: 4 mg Documented by:
[2021-04-19] MEDS: LOVASTATIN 20 MG TAB PO SCH (20:28)
[2021-04-20] MEDS: LEVOTHYROXINE SODIUM 112 MCG TABLET PO SCH (06:02)
[2021-04-20 08:18] LABS: BUN Creatinine Ratio 13.1 (10-20); Calcium 8.1 mg/dl (8.5-10.1); Creatinine Clr Calc Pharmacy 39.9 ml/min; Est GFR (African American) 52.2 ml/min; Est GFR (Non-African American) 45.1 ml/min; Magnesium 1.2 mg/dl (1.8-2.4); Phosphorus 2.4 mg/dl (2.5-4.9); Potassium 3.4 mmol/L (3.5-5.1)
[2021-04-20] MEDS: MEGESTROL ACETATE SUSP 400 MG/10 ML UDC PO SCH (08:41)
[2021-04-20] MEDS: FENOFIBRATE NANOCRYSTALLIZED 48 MG TABLET PO SCH (08:41)
[2021-04-20] MEDS ORDERED: POTASSIUM PHOS 3 MMOL/1 ML INFUSION IV STA (08:41)
[2021-04-20] MEDS ORDERED: POTASSIUM PHOSPHATE 30 MMOL in SODIUM CHLORIDE 0.9% 500 ML IV ONE (09:00)
--- NOTE | 2021-04-20 09:58 | Nephrology Progress Note ---
Date of Service April 20, 2021 Assessment & Plan Admission and Anticipated Discharge Date Admission Date: April 17, 2021 Subjective Feels better. No new issues. CA dropping really fast and is now slightly low. Appetite better.. PHYSICAL EXAMINATION: GENERAL: The patient is of moderate build, not in acute distress. HEENT: Pupils equal, round, and reactive to light. Oral mucosa moist. NECK: No JVD. No neck masses. Surgical thyroidectomy site no drainage or erythema seen. CARDIOVASCULAR: S1, S2 heard, regular rate and rhythm, no murmur, no gallop. RESPIRATORY SYSTEM: Normal AP diameter. No accessory muscle use. No wheezing, no crackles. ABDOMEN: Soft, bowel sounds present, nontender. No distention. CENTRAL NERVOUS SYSTEM: Cranial nerves II-XII grossly intact. Nonfocal. EXTREMITIES: No edema, no erythema. LABORATORY DATA: Ca down to 8.7 now. Low mag and low Phos ASSESSMENT AND PLAN: This is a 80-year-old female who presents not feeling well and found to have severe hypercalcemia. 1. Hypercalcemia: Recently had a thyroidectomy. Post Surgery---Was on very high dose combo of Tums and calcitriol, Citracal and Vit D. Ca down really fast. Stop iv fluids to 75/hr. Do not restart any of the Calcium meds today. Correct low Mag and low Phos. Also DEANA resolved. Will follow today. Do BMP, mag and Phos tomorrow. After discharge she will need labs every 2 days x 4 for monitoring of the electr olytes. Will need nephrology follow up within 1-2 week after discharge. Results & Data ([facility]) Vital Signs (Past 12 Hours) Vital Signs Temp Pulse Pulse Resp BP Pulse Ox 04/20/21 07:29 36.9 C 70 18 121/52 L 96 04/20/21 03:29 36.8 C 72 18 123/63 96 04/19/21 22:53 37 C 69 18 131/69 96 04/19/21 22:20 67
[2021-04-20] MEDS: MAGNESIUM SULFATE / D5W 1 GM/100 ML BAG IV SCH ×4 (10:12→20:42)
[2021-04-20] MEDS: NSS + 20MEQ KCL 20 MEQ/1,000 ML BAG IV SCH (11:23)
--- NOTE | 2021-04-20 15:46 | Hospitalist Progress Note ---
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 She has been complaining of progressive weakness since the surgery and has not been eating and/or drinking enough She was seen in the clinic and noted to have a calcium of more than 17 and was sent into the hospital Has been receiving intravenous fluids since admission and the calcium level has decreased to almost normal at 10.7 on 04/18/2021 Hypercalcemia is corrected We will continue a small amount of IV fluid for now We will discontinue intravenous fluid as calcium level is below normal now We will replace electrolytes and check tomorrow, if better she will be discharged home tomorrow Significant anorexia for the last 7 to 10 days Has not been drinking and/or eating enough at home Very dehydrated with increasing creatinine on admission Creatinine is better but remains anorexic We will try Megace-has not improved her anorexia yet Dietary consult-appreciate input and recommendation She plans to eat more and she has been eating more Severe electrolyte imbalance Hypomagnesemia and hypophosphatemia with hypokalemia Likely secondary to poor oral intake Has been getting supplement and will monitor the levels Will supplement of electrolytes on discharge (2) DEANA (acute kidney injury): DEANA secondary to dehydration with creatinine of 2.50 on admission Has been getting intravenous fluid and increasing oral intake We will monitor PRPcreatinine is 1.73 on 04/18/2021 Creatinine is improved to 1.43 Will have appointment with the battery service technician as an outpatient (3) Weakness: Secondary to hyperkalemia and DEANA We will get PT and OT evaluation (4) Hypothyroidism: Status post surgery for thyroid nodule Will need to have replacement with Synthroid (5) Hypertension: Blood pressure seems to be reasonably stable DVT prophylaxis We will start subcu heparin Likely discharge tomorrow Admission and Anticipated Discharge Date Admission Date: April 17, 2021 Subjective 04/18/2021 The patient was seen and examined in medical telemetry unit She remains weak and lethargic but feels a little better She has not been drinking or eating almost anything for the last 7 to 10 days Denies any acute symptoms except weakness 04/19/2021 The patient was seen and examined in medical telemetry unit She remains weak but has been feeling a little bit better compared with yesterday She will try to eat more and she was seen by the dietitian Not yet ready to be discharged 04/20/2021 The patient was seen and examined in medical telemetry unit Her weakness is much improved but electrolytes are still remains abnormal She has been eating a little bit more Review of Systems Review of Systems: All systems reviewed and are unremarkable except as noted below Gastrointestinal: Severe anorexia Neurologic: + generalized weakness Generally weak Physical Exam Physical Exam: Lying in bed comfortably but very anxious and weak Constitutional: well developed, well nourished and + ill appearing Eyes: PERRL, conjunctivae normal, anicteric sclerae ENMT: external ear and nose normal, oropharynx normal Neck: trachea midline, no thyromegaly Respiratory: no respiratory distress Auscultation: lungs clear to auscultation bilaterally Cardiovascular: Rate/Rhythm: regular rate and regular rhythm Heart Sounds: no murmur Extremities: no edema Gastrointestinal (Abdomen): Inspection/Auscultation: normal bowel sounds; abdomen not distended Percussion/Palpation: abdomen soft; abdomen nontender Musculoskeletal: No acute arthritis in any joint Neurologic: Alert, awake and oriented x3 generally weak. Psychiatric: A+Ox3, euthymic affect Lymphatic: no cervical or axillary lymphadenopathy Results & Data Results & Data ([facility]) Vital Signs (Past 12 Hours) Vital Signs Temp Pulse Resp BP BP Pulse Ox 04/20/21 15:00 36.6 C 72 18 128/61 96 04/20/21 12:02 36.8 C 74 18 163/65 H 96 04/20/21 07:29 36.9 C 70 18 121/52 L 96 Laboratory Results [facility] 04/20/21 07:31 Sodium 144 Potassium 3.4 L Chloride 115 H Carbon Dioxide 19 L BUN 15 Creatinine 1.16 Glucose 92 Calcium 8.1 L Medications Administered Current Inpatient Medications Acetaminophen (Acetaminophen 325 Mg Tab) 650 mg PO Q4H PRN PRN Reason: Pain or Fever Stop: 05/17/21 02:23 Atenolol (Atenolol 50 Mg Tablet) 100 mg PO BID [facility] Stop: 05/17/21 08:59 Felodipine (Felodipine 5 Mg Tabcr) 10 mg PO DAILY [facility] Stop: 05/17/21 08:59 Fenofibrate (Fenofibrate Nanocrystallized 48 Mg Tablet) 48 mg PO DAILY [facility]; Protocol Stop: 05/17/21 08:59 Last Admin: 04/20/21 08:41 Dose: 48 mg Documented by: Hydralazine HCl (Hydralazine Hcl 20 Mg/Ml Vial) 7.5 mg IV Q6H PRN PRN Reason: Hypertension Stop: 05/17/21 02:23 Potassium Chloride/Sodium Chloride (Normal Saline W/20 Meq Kcl) 20 meq in 1,000 mls @ 75 mls/hr IV .[id number] [facility] Stop: 05/17/21 16:59 Last Admin: 04/20/21 11:23 Dose: Not Given Documented by: Famotidine 20 mg/ Syringe 5 mls @ 2.5 mls/min IV DAILY PRN PRN Reason: Heartburn Stop: 05/19/21 08:59 Last Admin: 04/18/21 23:04 Dose: 2.5 mls/min Documented by: Magnesium Sulfate/Dextrose (Magnesium Sulfate / D5w) 1 gm in 100 mls @ 50 mls/hr IV Q2H [facility] Stop: 04/20/21 22:59 Levothyroxine Sodium (Levothyroxine Sodium 112 Mcg Tablet) 112 mcg PO DAILYBB [facility] Stop: 05/17/21 06:29 Last Admin: 04/20/21 06:02 Dose: 112 mcg Documented by: Lovastatin (Lovastatin 20 Mg Tab) 20 mg PO HS [facility] Stop: 05/17/21 20:59 Last Admin: 04/19/21 20:28 Dose: 20 mg Documented by: Megestrol Acetate (Megestrol Acetate Susp 400 Mg/10 Ml Udc) 800 mg PO QAM [facility] Stop: 05/19/21 08:59 Last Admin: 04/20/21 08:41 Dose: 800 mg Documented by: Nitroglycerin (Nitroglycerin Sl 0.4 Mg/Tab Tab) 0.4 mg SL UD PRN PRN Reason: Chest Pain Stop: 05/17/21 02:23 Ondansetron HCl (Ondansetron Inj 2 Mg/Ml 2 Ml Vial) 4 mg IV Q6H PRN PRN Reason: Nausea Stop: 05/17/21 02:23 Last Admin: 04/18/21 15:29 Dose: 4 mg Documented by:
[2021-04-20] MEDS: LOVASTATIN 20 MG TAB PO SCH (20:42)
[2021-04-20] MEDS: DOCUSATE SODIUM 100 MG CAP PO SCH (20:42)
[2021-04-21] MEDS: LEVOTHYROXINE SODIUM 112 MCG TABLET PO SCH (05:53)
[2021-04-21] MEDS: FENOFIBRATE NANOCRYSTALLIZED 48 MG TABLET PO SCH (07:37)
[2021-04-21] MEDS: MEGESTROL ACETATE SUSP 400 MG/10 ML UDC PO SCH (07:37)
[2021-04-21] MEDS: DOCUSATE SODIUM 100 MG CAP PO SCH ×2 (07:38→20:21)
[2021-04-21 08:06] LABS: Basophils # (auto) 0.01 K/uL (0-0.2); Basophils % (auto) 0.1 %; Eosinophils # (auto) 0.32 K/uL (0-0.5); Eosinophils % (auto) 4.2 %; Hematocrit (blood only) 24.5 % (37-47); Hemoglobin 8.3 g/dL (12.0-16.0); Immature Granulocytes # (auto) 0.11 K/uL (0.00-0.02); Immature Granulocytes % (auto) 1.4 %; Lymphocytes # (auto) 2.73 K/uL (1.2-3.4); Lymphocytes % (auto) 35.7 %; Mean Corpuscular Hemoglobin 31.1 pg (25-34); Mean Corpuscular Hgb Conc 33.9 g/dL (32-36); Mean Corpuscular Volume 91.8 fL (80-100); Mean Platelet Volume 9.7 fL (7.4-10.4); Monocytes # (auto) 0.66 K/uL (0.11-0.59); Monocytes % (auto) 8.6 %; Neutrophils # (auto) 3.82 K/uL (1.4-6.5); Platelet Count 310 K/uL (130-400); RDW Coefficient of Variation 13.8 % (11.5-14.5); RDW Standard Deviation 46.2 fL (36.4-46.3); Red Blood Count 2.67 M/uL (4.2-5.4); White Blood Count 7.65 K/uL (4.8-10.8)
[2021-04-21 08:40] LABS: BUN Creatinine Ratio 18.7 (10-20); Calcium 7.4 mg/dl (8.5-10.1); Creatinine Clr Calc Pharmacy 41.2 ml/min; Est GFR (African American) 54.5 ml/min; Magnesium 1.6 mg/dl (1.8-2.4); Phosphorus 2.6 mg/dl (2.5-4.9); Potassium 3.1 mmol/L (3.5-5.1)
[2021-04-21] MEDS ORDERED: POTASSIUM PHOS 3 MMOL/1 ML INFUSION IV STA (09:19)
--- NOTE | 2021-04-21 09:25 | Nephrology Progress Note ---
Date of Service April 21, 2021 Assessment & Plan Admission and Anticipated Discharge Date Admission Date: April 17, 2021 Subjective Feels better. No new issues. CA dropping really fast and is now slightly low. Appetite better.. PHYSICAL EXAMINATION: GENERAL: The patient is of moderate build, not in acute distress. HEENT: Pupils equal, round, and reactive to light. Oral mucosa moist. NECK: No JVD. No neck masses. Surgical thyroidectomy site no drainage or erythema seen. CARDIOVASCULAR: S1, S2 heard, regular rate and rhythm, no murmur, no gallop. RESPIRATORY SYSTEM: Normal AP diameter. No accessory muscle use. No wheezing, no crackles. ABDOMEN: Soft, bowel sounds present, nontender. No distention. CENTRAL NERVOUS SYSTEM: Cranial nerves II-XII grossly intact. Nonfocal. EXTREMITIES: No edema, no erythema. LABORATORY DATA: Ca down to 7 janet now. Low mag and low Phos ASSESSMENT AND PLAN: This is a 80-year-old female who presents not feeling well and found to have severe hypercalcemia. 1. Hypercalcemia: Recently had a thyroidectomy. Post Surgery---Was on very high dose combo of Tums and calcitriol, Citracal and Vit D. Ca down really fast. Will restart TUMS 500 bid. may need more. Add mag 64 bid. Plus iv magne today Correct low Mag . Also DEANA resolved. Will follow today. Do BMP, mag and Phos tomorrow. Not ready for discharge given rapidly changing electrolytes After discharge she will need labs every 2 days x 4 for monitoring of the electrolytes. Will need nephrology follow up within 1-2 week after discharge. Results & Data ([facility]) Vital Signs (Past 12 Hours) Vital Signs Temp Pulse Pulse Resp BP Pulse Ox 04/21/21 07:46 71 04/21/21 07:18 36.8 C 68 18 128/56 L 97 04/21/21 03:00 36.8 C 74 18 125/69 95 04/20/21 22:09 36.7 C 74 18 127/79 96 04/20/21 22:04 59 L
[2021-04-21] MEDS ORDERED: MAGNESIUM SULFATE / D5W 1 GM/100 ML BAG IV SCH (09:30)
[2021-04-21] MEDS ORDERED: POTASSIUM CHLORIDE CRTAB 20 MEQ TABCR PO SCH (09:30)
[2021-04-21] MEDS ORDERED: POTASSIUM PHOSPHATE 30 MMOL in SODIUM CHLORIDE 0.9% 500 ML IV ONE (10:30)
[2021-04-21] MEDS: CALCIUM CARBONATE 500 MG CHEWABLE TAB PO SCH ×2 (10:30→20:21)
[2021-04-21] MEDS: MAGNESIUM SULFATE / D5W 1 GM/100 ML BAG IV SCH ×2 (10:34→13:01)
[2021-04-21] MEDS: MAGNESIUM CHLORIDE 64MG DELAYED REL TAB PO SCH ×2 (10:56→20:21)
--- NOTE | 2021-04-21 15:11 | Hospitalist Progress Note ---
Date of Service April 21, 2021 Assessment & Plan (1) Hypercalcemia: She is a status post thyroid nodule surgery at [facility] on fourth of this month She was given extremely high dose of calcitriol and vitamin D as well as Tums following the surgery to prevent possible hungry bone syndrome She has been complaining of progressive weakness since the surgery and has not been eating and/or drinking enough She was seen in the clinic and noted to have a calcium of more than 17 and was sent into the hospital Has been receiving intravenous fluids since admission and the calcium level has decreased to almost normal at 10.7 on 04/18/2021 Hypercalcemia is corrected and in fact now with slow But been getting any intravenous fluid Has been feeling much better with improved eating Likely to go home tomorrow if the electrolytes are reasonable; will have every 2 days PRP , magnesium and phosphate checked as an outpatient on discharge and reported to go to Dr. Kerns Significant anorexia for the last 7 to 10 days Has not been drinking and/or eating enough at home Very dehydrated with increasing creatinine on admission Creatinine is better but remains anorexic We will try Megace-has not improved her anorexia yet Dietary consult-appreciate input and recommendation Her eating has improved a lot Severe electrolyte imbalance Hypomagnesemia and hypophosphatemia with hypokalemia Likely secondary to poor oral intake Has been getting supplement and will monitor the levels We will check electrolytes tomorrow and if reasonable will be discharged home (2) DEANA (acute kidney injury): DEANA secondary to dehydration with creatinine of 2.50 on admission Has been getting intravenous fluid and increasing oral intake We will monitor PRPcreatinine is 1.73 on 04/18/2021 Creatinine is improved to 1.43 Will have appointment with the assistant professor of history as an outpatient Creatinine has been normalized (3) Weakness: Secondary to hyperkalemia and DEANA We will get PT and OT evaluation (4) Hypothyroidism: Status post surgery for thyroid nodule Will need to have replacement with Synthroid (5) Hypertension: Blood pressure seems to be reasonably stable DVT prophylaxis We will start subcu heparin Admission and Anticipated Discharge Date Admission Date: April 17, 2021 Subjective 04/18/2021 The patient was seen and examined in medical telemetry unit She remains weak and lethargic but feels a little better She has not been drinking or eating almost anything for the last 7 to 10 days Denies any acute symptoms except weakness 04/19/2021 The patient was seen and examined in medical telemetry unit She remains weak but has been feeling a little bit better compared with yesterday She will try to eat more and she was seen by the dietitian Not yet ready to be discharged 04/20/2021 The patient was seen and examined in medical telemetry unit Her weakness is much improved but electrolytes are still remains abnormal She has been eating a little bit more 04/21/2021 The patient was seen and examined in medical telemetry unit She has been feeling a lot better and eating reasonably but her electrolytes remains low She will get PT and OT evaluation today and possible discharge tomorrow if electrolytes are reasonable Review of Systems Review of Systems: All systems reviewed and are unremarkable except as noted below Gastrointestinal: Severe anorexia Neurologic: + generalized weakness Generally weak Physical Exam Physical Exam: Lying in bed comfortably but very anxious and weak Constitutional: well developed and well nourished; not ill appearing Eyes: PERRL, conjunctivae normal, anicteric sclerae ENMT: external ear and nose normal, oropharynx normal Neck: trachea midline, no thyromegaly Respiratory: no respiratory distress Auscultation: lungs clear to auscultation bilaterally Cardiovascular: Rate/Rhythm: regular rate and regular rhythm Heart Sounds: no murmur Extremities: no edema Gastrointestinal (Abdomen): Inspection/Auscultation: normal bowel sounds; abdomen not distended Percussion/Palpation: abdomen soft; abdomen nontender Musculoskeletal: No acute arthritis in any joint Neurologic: Alert, awake and oriented x3. No focal sensory or motor deficit appreciated Psychiatric: A+Ox3, euthymic affect Lymphatic: no cervical or axillary lymphadenopathy Results & Data Results & Data ([facility]) Vital Signs (Past 12 Hours) Vital Signs Temp Pulse Pulse Resp BP Pulse Ox 04/21/21 14:59 36.8 C 79 18 129/67 98 04/21/21 11:02 36.8 C 75 18 133/63 96 04/21/21 07:46 71 04/21/21 07:18 36.8 C 68 18 128/56 L 97 Laboratory Results Short CBC 04/21/21 Range/Units 07:34 WBC 7.65 (4.8-10.8) K/uL Hgb 8.3 L (12.0-16.0) g/dL Hct 24.5 L (37-47) % Plt Count 310 (130-400) K/uL BMP 04/21/21 07:34 Sodium 143 Potassium 3.1 L Chloride 115 H Carbon Dioxide 19 L BUN 21 H Creatinine 1.12 Glucose 90 Calcium 7.4 L Medications Administered Current Inpatient Medications Acetaminophen (Acetaminophen 325 Mg Tab) 650 mg PO Q4H PRN PRN Reason: Pain or Fever Stop: 05/17/21 02:23 Atenolol (Atenolol 50 Mg Tablet) 100 mg PO BID [facility] Stop: 05/17/21 08:59 Calcium Carbonate (Calcium Carbonate 500 Mg Chewable Tab) 1,000 mg PO BID [facility] Stop: 05/21/21 09:29 Last Admin: 04/21/21 10:30 Dose: 1,000 mg Documented by: Docusate Sodium (Docusate Sodium 100 Mg Cap) 100 mg PO BID [facility] Stop: 05/20/21 20:59 Last Admin: 04/21/21 07:38 Dose: 100 mg Documented by: Felodipine (Felodipine 5 Mg Tabcr) 10 mg PO DAILY [facility] Stop: 05/17/21 08:59 Fenofibrate (Fenofibrate Nanocrystallized 48 Mg Tablet) 48 mg PO DAILY [facility]; Protocol Stop: 05/17/21 08:59 Last Admin: 04/21/21 07:37 Dose: 48 mg Documented by: Hydralazine HCl (Hydralazine Hcl 20 Mg/Ml Vial) 7.5 mg IV Q6H PRN PRN Reason: Hypertension Stop: 05/17/21 02:23 Famotidine 20 mg/ Syringe 5 mls @ 2.5 mls/min IV DAILY PRN PRN Reason: Heartburn Stop: 05/19/21 08:59 Last Admin: 04/18/21 23:04 Dose: 2.5 mls/min Documented by: Potassium Phosphate 30 mmol/ (Sodium Chloride) 510 mls @ 88 mls/hr IV ONE ONE Stop: 04/21/21 16:17 Last Admin: 04/21/21 10:35 Dose: 88 mls/hr Documented by: Levothyroxine Sodium (Levothyroxine Sodium 112 Mcg Tablet) [facility]: 05/17/21 06:29 Last Admin: 04/21/21 05:53 Dose: 112 mcg Documented by: Lovastatin (Lovastatin 20 Mg Tab) 20 mg PO [facility] Stop: 05/17/21 20:59 Last Admin: 04/20/21 20:42 Dose: 20 mg Documented by: Magnesium Chloride (Magnesium Chloride 64mg Delayed Rel Tab) 64 mg PO BID [facility] Stop: 05/21/21 09:29 Last Admin: 04/21/21 10:56 Dose: 64 mg Documented by: Megestrol Acetate (Megestrol Acetate Susp 400 Mg/10 Ml Udc) 800 mg PO QAM [facility] Stop: 05/19/21 08:59 Last Admin: 04/21/21 07:37 Dose: 800 mg Documented by: Nitroglycerin (Nitroglycerin Sl 0.4 Mg/Tab Tab) 0.4 mg SL UD PRN PRN Reason: Chest Pain Stop: 05/17/21 02:23 Ondansetron HCl (Ondansetron Inj 2 Mg/Ml 2 Ml Vial) 4 mg IV Q6H PRN PRN Reason: Nausea Stop: 05/17/21 02:23 Last Admin: 04/18/21 15:29 Dose: 4 mg Documented by: Potassium Chloride (Potassium Chloride Crtab 20 Meq Tabcr) 40 meq PO TODAY@0930 [facility] Stop: 04/21/21 23:59 Last Admin: 04/21/21 10:30 Dose: 40 meq Documented by:
[2021-04-21] MEDS: LOVASTATIN 20 MG TAB PO SCH (20:21)
[2021-04-22] MEDS: LEVOTHYROXINE SODIUM 112 MCG TABLET PO SCH (05:57)
[2021-04-22 08:21] LABS: Basophils # (auto) 0.02 K/uL (0-0.2); Basophils % (auto) 0.3 %; Eosinophils # (auto) 0.31 K/uL (0-0.5); Eosinophils % (auto) 4.2 %; Hematocrit (blood only) 24.7 % (37-47); Hemoglobin 8.2 g/dL (12.0-16.0); Immature Granulocytes % (auto) 1.4 %; Lymphocytes # (auto) 2.67 K/uL (1.2-3.4); Lymphocytes % (auto) 36.1 %; Mean Corpuscular Hemoglobin 30.8 pg (25-34); Mean Corpuscular Hgb Conc 33.2 g/dL (32-36); Mean Corpuscular Volume 92.9 fL (80-100); Mean Platelet Volume 9.8 fL (7.4-10.4); Monocytes # (auto) 0.72 K/uL (0.11-0.59); Monocytes % (auto) 9.7 %; Neutrophils # (auto) 3.57 K/uL (1.4-6.5); Neutrophils % (auto) 48.3 %; Platelet Count 319 K/uL (130-400); RDW Coefficient of Variation 14.2 % (11.5-14.5); RDW Standard Deviation 48.8 fL (36.4-46.3); Red Blood Count 2.66 M/uL (4.2-5.4); White Blood Count 7.39 K/uL (4.8-10.8)
[2021-04-22] MEDS: MEGESTROL ACETATE SUSP 400 MG/10 ML UDC PO SCH (08:37)
[2021-04-22] MEDS: MAGNESIUM CHLORIDE 64MG DELAYED REL TAB PO SCH ×3 (08:37→15:06)
[2021-04-22] MEDS: FENOFIBRATE NANOCRYSTALLIZED 48 MG TABLET PO SCH (08:37)
[2021-04-22] MEDS: CALCIUM CARBONATE 500 MG CHEWABLE TAB PO SCH ×3 (08:38→15:06)
[2021-04-22] MEDS: DOCUSATE SODIUM 100 MG CAP PO SCH (08:38)
[2021-04-22 08:51] LABS: BUN Creatinine Ratio 16.8 (10-20); Calcium 7.3 mg/dl (8.5-10.1); Creatinine Clr Calc Pharmacy 45.5 ml/min; Est GFR (Non-African American) 52.6 ml/min; Magnesium 1.5 mg/dl (1.8-2.4); Potassium 3.2 mmol/L (3.5-5.1)
[2021-04-22 08:52] LABS: Phosphorus 2.7 mg/dl (2.5-4.9)
[2021-04-22] MEDS ORDERED: POTASSIUM CHLORIDE CRTAB 20 MEQ TABCR PO SCH (09:15)
--- NOTE | 2021-04-22 09:19 | Nephrology Progress Note ---
Date of Service April 22, 2021 Assessment & Plan Admission and Anticipated Discharge Date Admission Date: April 17, 2021 Subjective Feels better. No new issues. CA dropping really fast and is now slightly low. Appetite better.. PHYSICAL EXAMINATION: GENERAL: The patient is of moderate build, not in acute distress. HEENT: Pupils equal, round, and reactive to light. Oral mucosa moist. NECK: No JVD. No neck masses. Surgical thyroidectomy site no drainage or erythema seen. CARDIOVASCULAR: S1, S2 heard, regular rate and rhythm, no murmur, no gallop. RESPIRATORY SYSTEM: Normal AP diameter. No accessory muscle use. No wheezing, no crackles. ABDOMEN: Soft, bowel sounds present, nontender. No distention. CENTRAL NERVOUS SYSTEM: Cranial nerves II-XII grossly intact. Nonfocal. EXTREMITIES: No edema, no erythema. LABORATORY DATA: Ca down to 7 janet now. Low mag and low Phos ASSESSMENT AND PLAN: This is a 80-year-old female who presents not feeling well and found to have severe hypercalcemia. 1. Hypercalcemia: Recently had a thyroidectomy. Post Surgery---Was on very high dose combo of Tums and calcitriol, Citracal and Vit D. Ca down really fast and now is low. raise TUMS 1000 tid. may need more. Add mag 128 bid. Also DEANA resolved. Can be discharged now. After discharge she will need labs every 2 days x 4 for monitoring of the electrolytes. Will need nephrology follow up within 1-2 week after discharge. magox 128 bid k.cl 20 bid TUMS 1000 tid-- Results & Data ([facility]) Vital Signs (Past 12 Hours) Vital Signs Temp Pulse Pulse Resp BP Pulse Ox 04/22/21 07:39 37.0 C 74 16 127/57 L 97 04/22/21 03:34 36.7 C 72 18 130/65 96 04/21/21 23:16 83 04/21/21 22:55 36.8 C 80 18 132/65 97
--- NOTE | 2021-04-22 12:19 | Discharge Summary ---
Date of Service April 22, 2021 Admission HPI Per Admitting Provider A 80-year-old female with past medical history significant for hyperlipidemia, cyst of right ovary, mild mitral regurgitation, essential hypertension, external hemorrhoids, chronic kidney disease stage IIIB, history of colon cancer, history of partial thyroidectomy on 03/20/2021 and again had to do total thyroidectomy on 04/09/2021. Comes because of not feeling well and found to have hypercalcemia. The patient states since thyroidectomy she was not feeling well, fatigued, weakness, somewhat wobbly with walking, poor appetite. Outpatient labs showed calcium of around 17 and she was advised to come to the hospital. In the ER, her calcium was 17. ER talked to nephrology and recommended aggressive fluids and she was taking Tums and also calcitriol at her home which was stopped. Currently resting comfortably and hemodynamically stable. Denies any headache, no blurred visions, no earache, no runny nose, no sore throat, no cough. Somewhat nauseous. No chest pain, no shortness of breath, no pain at surgical site. No abdominal pain. Normal bowel and bladder movements. Admission Exam Per Admitting Provider GENERAL: The patient is of moderate build, not in acute distress. VITAL SIGNS: Temperature 36.4, pulse 54, respiratory rate 18, blood pressure 161/62, oxygen 99% on room air. HEENT: Pupils equal, round, and reactive to light. Oral mucosa moist. NECK: No JVD. No neck masses. Surgical thyroidectomy site no drainage or erythema seen. CARDIOVASCULAR: S1, S2 heard, regular rate and rhythm, no murmur, no gallop. RESPIRATORY SYSTEM: Normal AP diameter. No accessory muscle use. No wheezing, no crackles. ABDOMEN: Soft, bowel sounds present, nontender. No distention. CENTRAL NERVOUS SYSTEM: Cranial nerves II-XII grossly intact. Nonfocal. EXTREMITIES: No edema, no erythema. Principal Diagnosis Hypercalcemia Discharge Exam General: A&Ox3 HENT: NCAT, MMM, EOMI Eyes: PERRLA Neck: Supple, normal range of motion CVS: normal rate and rhythm Resp: b/l good breath sounds Abdomen: Soft, ND/NT, +BS Extremities: No c/c/e Neuro: face symmetric, strength grossly equal, no focal deficit Skin: warm and dry MSK: no joint swelling/erythema Discharge Data Allergies Allergy/AdvReac Type Severity Reaction Status Date / Time No Known Allergies Allergy Verified 12/20/02 18:10 Consultations 04/16/21 22:44 ED Decision to Admit Stat 04/17/21 08:00 Consult Nephrology Routine Hospital Course (1) Hypercalcemia: She is a status post thyroid nodule surgery at [facility] on fourth of this month She was given extremely high dose of calcitriol and vitamin D as well as Tums following the surgery to prevent possible hungry bone syndrome She has been complaining of progressive weakness since the surgery and has not been eating and/or drinking enough She was seen in the clinic and noted to have a calcium of more than 17 and was sent into the hospital Nephrology was consulted and she was resuscitated aggressively with fluids. Severe electrolyte imbalance Hypomagnesemia and hypophosphatemia with hypokalemia Likely secondary to poor oral intake On the day of discharge patient was doing okay. Her electrolytes were improved. Discharge instructions: Follow-up with your primary care physician within 1 week. You will need labs (basic metabolic panel, magnesium, phosphorus) every 2 days for at least 4 times. You will need to follow-up with nephrology within 1 week. An appointment has been requested. Start taking medications listed below until you have been asked to stop taking them by your primary care physician. Magox 128 twice daily Potassium 20 mEq twice daily TUMS 1000 3 times daily (2) DEANA (acute kidney injury): It resolved prior to discharge. (3) Weakness: Secondary to hyperkalemia and DEANA (4) Hypothyroidism: Status post surgery for thyroid nodule Will need to have replacement with Synthroid (5) Hypertension: Blood pressure seems to be reasonably stable. Total Time Total Time Spent Total Time Spent (In Minutes): 35 Discharge Plan Discharge Items Patient Disposition: Home - Self-Care Reason For Visit: HYPERCALCEMIA Discharge Diagnosis: Hypercalcemia Activity: Resume your previous activity Non-emergency contact: Primary Care Provider Call non-emergency contact if: your symptoms worsen Follow-up/Referrals: Heidi Fiore DO [Primary Care Provider] - (Date & Time 04/24/2021 11:10 AM Provider Heidi Fiore DO Department Family Medicine [facility] ) Diet: Regular Addtl Attending Provider Instructions: Follow-up with your primary care physician within 1 week. You will need labs (basic metabolic panel, magnesium, phosphorus ) every 2 days for at least 4 times. You will need to follow-up with nephrology within 1 week. An appointment has been requested. Start taking medications listed below until you have been asked to stop taking them by your primary care physician. Magox 128 twice daily Potassium 20 mEq twice daily TUMS 1000 3 times daily Pending Studies at Discharge: No Stand-Alone Forms: My [facility] Where, Smoking Cessation Medications and DC Order Prescriptions: New magnesium chloride [Mag 64] 64 mg Tablet,Delayed Release (Dr/Ec) 128 mg PO BID 30 Days Qty: 120 RF: 0 potassium chloride [Klor-Con M20] 20 mEq Tablet,Er Particles/Crystals 20 meq PO BID 30 Days Qty: 60 RF: 0 calcium carbonate [Tums] 200 mg calcium (500 mg) Tablet,Chewable 1,000 mg PO TID 30 Days Qty: 450 RF: 0 Continued atenolol 100 mg tablet 100 mg PO BID RF: 0 levothyroxine 112 mcg tablet 112 mcg PO DAILYBB RF: 0 lovastatin 20 mg tablet 20 mg PO HS RF: 0 felodipine 10 mg tablet extended release 24 hr 10 mg PO DAILY RF: 0 fenofibrate 54 mg tablet 54 mg PO DAILY RF: 0 losartan 100 mg tablet 100 mg PO DAILY RF: 0 Discontinued ondansetron HCl 4 mg tablet 4 mg PO Q8 PRN (Reason: Nausea) RF: 0 triamterene-hydrochlorothiazid 37.5-25 mg capsule 1 cap PO DAILY RF: 0 potassium chloride 20 mEq tablet,ER particles/crystals 20 meq PO DAILY RF: 0 Discharge Orders: Discharge Order (Routine); Ordered 04/22/21 Ordered By: Cody Chaudhari Admission Data Admit Date/Time: 04/17/21 00:19 Attending Provider: Cody Chaudhari Admit Provider: Reggie Barger Primary Care Provider: Heidi Fiore Other Providers: Reggie Barger ; Jyotsna Dickerson ; Reynaldo Zacarias ; eCce Packer ; Emma Eid ; Anton Marmolejo ; Shaista Ding
== END 2021-04-22 16:26 | disposition home or self-care (01) | DRG 641 ==
LOC: ED 21:15 → EDINP 04-17 00:19 → SUATTDRO 04-17 00:19 → EDINP 04-17 01:23 → 2W 04-17 13:47